=== PATIENT | female | born 1990 | race Caucasian/White ===

== ENCOUNTER 2016-11-25 19:18 | Emergency (ER) | payer MEDICAID ==
[~2016-11-25] VITALS: Ht 162.6 cm; Wt 83.9 kg
[2016-11-25] MEDS ORDERED: IBUPROFEN 600 MG TABLET PO ONE ×2 (19:49→20:00)
[2016-11-25] MEDS ORDERED: ONDANSETRON 4 MG TAB.RAPDIS ONE (19:49)
[2016-11-25] MEDS ORDERED: ONDANSETRON HCL 4 MG/5 ML SOLUTION PO ONE (20:00)
[2016-11-25 21:15] VITALS: BP 138/84
== END 2016-11-25 21:16 | disposition home or self-care (01) ==
LOC: ER 19:24
DX: R06.02 Shortness of breath (principal)
CPT/HCPCS: A4606; Q0162; Z7610

== ENCOUNTER 2017-03-29 10:40 | Emergency (ER) | payer MEDICAID ==
[~2017-03-29] VITALS: Ht 165.1 cm; Wt 68.0 kg
[2017-03-29] MEDS ORDERED: IV NS 0.9% 1,000 ML ONE (10:45)
[2017-03-29] MEDS ORDERED: ONDANSETRON HCL/PF 4 MG/2 ML VIAL ONE (10:45)
[2017-03-29] MEDS ORDERED: IV SET PRIMARY PUMP SET 1 EA INFUS.SET MC ONE (10:45)
[2017-03-29 11:20] LABS: BASOPHILS % (AUTO) 0.3 % (0.0-2.0); EOSINOPHILS % (AUTO) 0.2 % (0.0-6.0); HEMATOCRIT 43 % (33-45); HEMOGLOBIN 14.3 g/dL (11.5-14.8); LYMPHOCYTES # (AUTO) 0.2 /CMM (0.8-4.8); LYMPHOCYTES % (AUTO) 2.9 % (20.0-44.0); MEAN CORPUSCULAR HEMOGLOBIN 28 PG (26.0-33.0); MEAN CORPUSCULAR HGB CONC 33 g/dl (31.0-36.0); MEAN CORPUSCULAR VOLUME 85 fL (82-100); MONOCYTES # (AUTO) 0.3 /CMM (0.1-1.30); MONOCYTES % (AUTO) 3.3 % (2.0-12.0); NEUTROPHILS # (AUTO) 7.7 /CMM (1.8-8.9); NEUTROPHILS % (AUTO) 93.3 % (43.0-81.0); PLATELET COUNT (AUTO) 274 /CMM (150-450); RED BLOOD CELL COUNT(AUTO) 5.11 MIL/uL (4.0-5.2); WHITE BLOOD COUNT (AUTO) 8.2 K/uL (4.3-11.0)
--- NOTE | 2017-03-29 11:21 | NUR ---
PT BIB MOTHER C/O N/V/D X 1 DAY WITH ABDOMINAL CRAMPING INTERMITTENTLY. DENIES BLOOD IN STOOL OR VOMIT. NAD NOTED. RESP EVEN UNLABORED. SKIN WARM NONDIAPHORETIC. IV LINE ESTABLISHED, BLOOD DRAWN. IN ER BED 09.
[2017-03-29] MEDS ORDERED: ONDANSETRON HCL/PF 4 MG/2 ML VIAL IVP ONE (11:30)
[2017-03-29] MEDS ORDERED: IV NS 0.9% 1,000 ML BAG IV ONE (11:30)
[2017-03-29 11:32] LABS: CALCIUM, SERUM 8.4 mg/dL (8.5-10.1); CREATININE 0.6 mg/dL (0.6-1.3); POTASSIUM 3.8 mmol/L (3.5-5.1)
[2017-03-29 11:37] LABS: ALBUMIN 3.7 g/dL (3.4-5.0); BILIRUBIN,DIRECT 0.1 mg/dL (0.0-0.2); BILIRUBIN,TOTAL 0.8 mg/dL (0.2-1.0); TOTAL PROTEIN, SERUM 7.3 g/dL (6.4-8.2)
[2017-03-29] MEDS ORDERED: HYDROCODONE/APAP 5/325MG 1 EACH TABLET ONE (11:39)
[2017-03-29] MEDS ORDERED: HYDROCODONE/APAP 5/325MG 1 EACH TABLET PO ONE (12:00)
[2017-03-29 12:26] LABS: APPEARANCE,URINE Clear (CLEAR); BILIRUBIN,URINE Negative (NEGATIVE); BLOOD, URINE Trace-lysed Ery/uL (NEGATIVE); COLOR,URINE Yellow (YELLOW); KETONES,URINE Negative (NEGATIVE); LEUKOCYTE ESTERASE ,URINE Small (NEGATIVE); NITRITE, URINE Negative (NEGATIVE); PH,URINE 6.5 (5.0-8.0); PROTEIN,URINE Trace mg/dl (NEGATIVE); UGLUCOSE Negative (NEGATIVE); UROBILINOGEN,URINE 0.2 EU/dL (0.2)
[2017-03-29 12:27] LABS: PREGNANCY TEST URINE QUAL NEGATIVE (NEGATIVE)
[2017-03-29 12:35] LABS: BACTERIA,URINE Few /HPF (None Seen); SQUAMOUS EPITHELIAL CELL,UR Few /HPF (None Seen)
--- NOTE | 2017-03-29 12:44 | NUR ---
RESTING QUIETLY, NAD NOTED. STILL C/O ABD CRAMPING. Addendum: 03/29/17 at 1251 by HFOX CORRECTION: C/O HEADACHE, NOT ABD CRAMPING
[2017-03-29] MEDS ORDERED: KETOROLAC TROMETHAMINE INJ 30 MG/ML VIAL ONE (12:46)
[2017-03-29] MEDS ORDERED: KETOROLAC TROMETHAMINE INJ 30 MG/ML VIAL IV ONE (13:00)
[2017-03-29 13:24] VITALS: BP 98/54
--- NOTE | 2017-03-29 13:25 | NUR ---
IV removed. Catheter intact and site benign. Pressure and 4x4 applied to site. No bleeding noted. Patient discharged to home in stable condition. Written and verbal after care instructions given. Patient verbalizes understanding of instruction.
== END 2017-03-29 13:25 | disposition home or self-care (01) ==
LOC: ER 10:42
DX: R10.33 Periumbilical pain (principal); R11.2 Nausea with vomiting, unspecified
CPT/HCPCS: 36415; 80048; 80076; 81001; 83690; 84703; 85025; 87086; 96361; 96374; 96375; 99284; A4606; J1885; J2405; J7030; Z7610; 81000-TC

== ENCOUNTER 2018-01-11 14:32 | Emergency (ER) | payer MEDICAID ==
[~2018-01-11] VITALS: Ht 160 cm; Wt 97.5 kg
[2018-01-11 14:32] VITALS: BP 128/72
--- NOTE | 2018-01-11 14:52 | NUR ---
PT PRESENTED TO THE ER WITH A C/O N/V SINCE LAST NIGHT. PT STATED THAT SHE HAS A LITTLE CONGESTION AND LAST VOMITTED LAST NIGHT. PT IS ONLY NAUSEATED TODAY.
--- NOTE | 2018-01-11 14:52 | NUR ---
URINE SAMPLE OBTAINED AND SENT TO LAB.
[2018-01-11] MEDS ORDERED: ONDANSETRON 4 MG TAB.RAPDIS ONE (14:53)
--- NOTE | 2018-01-11 14:56 | NUR ---
ARON, POWER [employer]OV[employer] ME[employer], AT THE BEDSIDE FOR BLOOD DRAW.
[2018-01-11] MEDS ORDERED: ONDANSETRON 4 MG TAB.RAPDIS SL ONE (15:00)
--- NOTE | 2018-01-11 15:57 | NUR ---
CALLED LAB RE: URINE SAMPLE. SAMPLE REC'D.
[2018-01-11 16:01] LABS: APPEARANCE,URINE CLEAR (CLEAR); BILIRUBIN,URINE NEGATIVE (NEGATIVE); BLOOD, URINE NEGATIVE Ery/uL (NEGATIVE); COLOR,URINE YELLOW (YELLOW); KETONES,URINE NEGATIVE (NEGATIVE); LEUKOCYTE ESTERASE ,URINE NEGATIVE (NEGATIVE); NITRITE, URINE NEGATIVE (NEGATIVE); PH,URINE 5.5 (5.0-8.0); PROTEIN,URINE NEGATIVE (NEGATIVE); UGLUCOSE NEGATIVE (NEGATIVE); UROBILINOGEN,URINE 0.2 EU/dL (0.2)
--- NOTE | 2018-01-11 16:35 | NUR ---
Patient discharged to home in stable condition. Written and verbal after care instructions given. Patient verbalizes understanding of instruction AND RX. PT AMBULATED OUT WITH A STEADY GAIT. VSS.
== END 2018-01-11 16:37 | disposition home or self-care (01) ==
LOC: ER 14:36
DX: O21.9 Vomiting of pregnancy, unspecified (principal); Z3A.00 Weeks of gestation of pregnancy not specified
CPT/HCPCS: 36415; 81001; 84703 ×2; 99284; A4606; Q0162; Z7610; 81000-TC